=== PATIENT | female | born 1955 | race Caucasian/White ===

== ENCOUNTER 2017-07-27 07:19 | Day surgery (SDC) | payer OTHER ==
[~2017-07-27 07:19] MED LIST: CENESTIN0.625 MG PO; CYMBALTA30 MG PO; GABAPENTIN300 M1 PO; MEDROL 4MG. DOSE4 MG PO; METFORMIN500 MG PO; SINGULAIR10 MG PO; SYMBICORT 10.10.2 M1 IH
[2017-07-27 08:04] LABS: HEMOGLOBIN 13.9 g/dL (12.2-16.2); LYMPH % 37.2 % (10-50.0)
[2017-07-27 08:05] LABS: LYMPH # 3.3 K/mm3 (0.7-4.5)
[2017-07-27 08:09] LABS: BUN 12 mg/dL (7-18)
[2017-07-27 08:10] LABS: GFR (ESTIMATED) 73 ML/MIN (59-)
--- NOTE | 2017-07-27 11:01 | RADIOLOGY REPORT PS360 ---
CARDIAC CATHETERIZATION DATE OF CATHETERIZATION:07/27/2017 9:13 AM PROCEDURES: 1. Left heart catheterization 2. Left ventriculogram 3. Selective coronary angiogram INDICATION FOR TEST: 1. Abnormal Myoview 2. Angina pectoris Informed consent was obtained prior to the procedure. COMPLICATIONS: None ESTIMATED BLOOD LOSS: Less than 10 ml. TECHNIQUE: One percent lidocaine used to anesthetize the right anterior aspect of the wrist. The right radial artery was accessed via the Seldinger technique. A 6 Swedish sheath was placed in the right radial artery. 2.5 mg of verapamil, 800 mcg of nitroglycerin and 5000 U Heparin were given through the arterial sheath. The Cinthia catheter was also used to perform left heart catheterization and left ventriculography. At the end of the procedure the patient was transferred to the post-op holding area in stable condition for arterial sheath removal. ANGIOGRAPHIC RESULTS: 1. The left main artery normal 2. The left anterior descending artery mild luminal irregularities 3. The circumflex artery nondominant mild luminal irregularities 4. The right coronary artery dominant mild luminal irregularities 5. The ROBERTSON ventriculogram reveals slightly hyperdynamic at 75% 6. The left ventricular end-diastolic pressure 15 mmHg IMPRESSION: 1. Mild luminal irregularities all nonflow limiting 2. Slightly hyperdynamic ejection fraction consistent with hypertensive heart disease 3. Slightly elevated LVEDP PLAN: 1. Risk factor modification 2. Baby aspirin daily 3. LDL less than 100 4. Control of hypertension
[2017-07-27 13:54] VITALS: BP 162/72
== END 2017-07-27 13:44 ==
LOC: CATHLAB 07:19
PROVIDERS: Internal Medicine
PROC: B2111ZZ Fluoroscopy of Multiple Coronary Arteries using Low Osmolar Contrast (ICD-10-PCS; 2017-07-27)
PROC: B2151ZZ Fluoroscopy of Left Heart using Low Osmolar Contrast (ICD-10-PCS; 2017-07-27)
PROC: 4A023N7 Measurement of Cardiac Sampling and Pressure, Left Heart, Percutaneous Approach (ICD-10-PCS; principal; 2017-07-27 09:45)
DX: R07.9 Chest pain, unspecified (principal); R94.39 Abnormal result of other cardiovascular function study
CPT/HCPCS: C1725; C1769; J1644; Q9967

== ENCOUNTER → 2017-08-06 | Outpatient (CLI) | payer OTHER ==
--- NOTE | 2017-08-06 20:15 | RADIOLOGY REPORT PS360 ---
PROCEDURE: 2-D M-mode and color Doppler study INDICATIONS FOR THE TEST: Chest pain X COPD Heart Murmur Tobacco Smoking Palpitations Fatigue Syncope Edema HypertensionXDiabetes Mellitus Rheumatic Fever SOBXXDOE ObesityXHyperlipidemia Family History HD Additional History ABN GXT PATIENT INFORMATION HEIGHT: 66 WEIGHT:204 GENDER: Female B/P:110/70 2-D/M-MODE INTERPRETATION: 2-D MEASUREMENTS OBSERVED VALUES IN CMS Right Ventricular Dimension (RVDd) 2.0 Interventricular Septum (Thickness)(IVsd) .8 Left Ventricular Internal Dimensions(LVIDd) 4.8 Left Ventricular Posterior Wall (Thickness)(LVPWd) .8 Aortic Root 2.5 Aortic Cusp Separation 1.8 Left Atrial Dimensions (LAD) 3.1 2D 1. Left atrium is qualitatively mildly enlarged, left ventricle is normal size, there is mild concentric left ventricular hypertrophy present, visually estimated ejection fraction 55% with no obvious regional wall motion abnormality. 2. The right atrium and right ventricle are normal size and contractility. 3. The aortic valve is minimally thickened and calcified, leaflet continue to display good mobility. 4. The mitral and tricuspid valve leaflets are minimally thickened. 5. The pulmonic valve is poorly visualized. 6. No significant pericardial effusion noted. DOPPLER INTERROGATION: Doppler interrogation of the aortic, mitral and tricuspid valve reveals presence of mild mitral and tricuspid regurgitation, tricuspid regurgitant jet velocity insufficient for calculation of the right ventricular systolic pressure, grade 1 diastolic dysfunction seen without tissue Doppler evidence of raised left atrial pressure. CONCLUSION: 1. Mildly enlarged left atrium, normal left ventricular size, mild concentric left ventricular hypertrophy, visually estimated ejection fraction of 55% with no obvious regional wall motion abnormality, grade 1 diastolic dysfunction seen without tissue Doppler evidence of raised left atrial pressure. 2. Mild mitral and tricuspid regurgitation. 3. No significant pericardial effusion noted.
== END ==
LOC: RT 08-03 08:00
DX: I20.8 Other forms of angina pectoris (principal); R94.39 Abnormal result of other cardiovascular function study; R06.02 Shortness of breath; E11.9 Type 2 diabetes mellitus without complications; J45.909 Unspecified asthma, uncomplicated; E78.5 Hyperlipidemia, unspecified; I25.10 Atherosclerotic heart disease of native coronary artery without angina pectoris; I11.9 Hypertensive heart disease without heart failure; G47.33 Obstructive sleep apnea (adult) (pediatric)

== ENCOUNTER 2017-09-25 11:13 | Day surgery (SDC) | payer OTHER ==
[2017-09-25 13:37] VITALS: BP 154/79
== END 2017-09-25 13:10 | disposition home or self-care (01) ==
LOC: SDC 11:13
PROVIDERS: Ophthalmology
PROC: 08RK3JZ Replacement of Left Lens with Synthetic Substitute, Percutaneous Approach (ICD-10-PCS; principal; 2017-09-25 14:30)
DX: H25.813 Combined forms of age-related cataract, bilateral (principal); E11.9 Type 2 diabetes mellitus without complications
CPT/HCPCS: V2632

== ENCOUNTER 2017-10-09 06:19 | Day surgery (SDC) | payer OTHER ==
[2017-10-09 13:32] VITALS: BP 140/60
== END 2017-10-09 09:30 | disposition home or self-care (01) ==
LOC: SDC 06:19
PROVIDERS: Ophthalmology
PROC: 08RK3JZ Replacement of Left Lens with Synthetic Substitute, Percutaneous Approach (ICD-10-PCS; principal; 2017-10-09 07:30)
DX: H25.813 Combined forms of age-related cataract, bilateral (principal)
CPT/HCPCS: V2632